=== PATIENT | male | born 1995 | race Caucasian/White ===

== ENCOUNTER 2018-03-01 12:38 | Emergency (ER) | payer SELFPAY ==
[~2018-03-01] VITALS: Ht 177.8 cm; Wt 106.1 kg
[2018-03-01 12:44] VITALS: Ht 177.8 cm; Wt 106.1 kg
[2018-03-01] MEDS ORDERED: KETOROLAC 30 MG INJ IV STA (13:10)
--- NOTE | 2018-03-01 13:25 | ERD ---
ER Documentation Chief Complaint Chief Complaint Complains of lower back and testicular pain HPI 22-year-old male presents with lower back pain which started on Monday. States the pain is the right side of his back. Denies any history of trauma and says it just started when he woke up in the morning. States he has limited range of motion of the back. He is ambulatory. Denies incontinence, saddle numbness, difficulty urinating, focal neurological deficits. In addition he states he has right testicular pain which started Monday. Patient denies any risky sexual behavior, is only sexually active with . He denies any hematuria, dysuria, fevers, or chills. Denies past medical history. Denies allergies. Denies medica tions. Denies surgeries. Denies alcohol, tobacco, drug use. ROS All systems reviewed and are negative except as per history of present illness. Medications Home Meds Active Scripts Hydrocodone/Acetaminophen ([place] 5-325 Tablet) 1 Each Tablet, 1-2 TAB PO Q6H PRN for PAIN, #20 TAB 0 Refills Prov:KT URBINA 03/01/18 Ibuprofen* (Motrin*) 600 Mg Tab, 600 MG PO Q6 for Pain, #30 TAB 0 Refills Prov:KT URBINA 03/01/18 Allergies Allergies: Coded Allergies: No Known Allergy (Unverified , 10/23/11) PMhx/Soc History of Surgery: No Anesthesia Reaction: No Hx Neurological Disorder: No Hx Respiratory Disorders: No Hx Cardiac Disorders: No Hx Psychiatric Problems: No Hx Miscellaneous Medical Probl: No Hx Alcohol Use: No Hx Substance Use: No Hx Tobacco Use: No FmHx Family History: No diabetes, No coronary disease, No other Physical Exam Vitals Vital Signs Date Temp Pulse Resp B/P (MAP) Pulse Ox O2 O2 Flow FiO2 Time Delivery Rate 03/01/18 98.6 67 20 120/57 98 Room Air 17:22 (78) 03/01/18 98.5 105 20 140/64 97 12:44 (89) Physical Exam General: Well developed, will nourished. No acute distress. Heart: RR w/o murmur, rubs, or gallops. Lungs: Clear to auscultation bilaterally w/o wheezes, crackles, rhonchi. Symmetric rise and fall. Equal breath sounds. Abdomen: Soft, nontender, with no rigidity or guarding noted. No masses, le sions, or ecchymoses. Normoactive bowel sounds. No McBurney's point tenderness. Patient ambulatory. No tenderness to palpation in splenic area or splenomegaly. No CVA tenderness. : Right side testicle tender to palpation. No edema or erythema noted. No signs of phimoses or torsion. No signs of inguinal hernia. Back: Limited flexion. Full extension or lateral rotation. No midline tenderness, step offs, or bony deformities. Result Diagram: 03/01/18 1334 03/01/18 1334 Results 24 hrs Laboratory Tests Test 03/01/18 13:34 White Blood Count 10.9 10^3/ul Red Blood Count 5.19 10^6/ul Hemoglobin 16.3 g/dl Hematocrit 47.7 % Mean Corpuscular Volume 91.9 fl Mean Corpuscular Hemoglobin 31.4 pg Mean Corpuscular Hemoglobin Concent 34.2 g/dl Red Cell Distribution Width 11.9 % Platelet Count 302 10^3/UL Mean Platelet Volume 9.4 fl Immature Granulocytes % 0.300 % Neutrophils % 65.0 % Lymphocytes % 23.9 % Monocytes % 6.3 % Eosinophils % 3.9 % Basophils % 0.6 % Nucleated Red Blood Cells % 0.0 /100WBC Immature Granulocytes # 0.030 10^3/ul Neutrophils # 7.1 10^3/ul Lymphocytes # 2.6 10^3/ul Monocytes # 0.7 10^3/ul Eosinophils # 0.4 10^3/ul Basophils # 0.1 10^3/ul Nucleated Red Blood Cells # 0.0 10^3/ul Urine Color YELLOW Urine Clarity CLEAR Urine pH 5.0 Urine Specific [place] 1.012 Urine Ketones NEGATIVE mg/dL Urine Nitrite NEGATIVE mg/dL Urine Bilirubin NEGATIVE mg/dL Urine Urobilinogen NEGATIVE mg/dL Urine Leukocyte Esterase NEGATIVE Thuan/ul Urine Hemoglobin NEGATIVE mg/dL Urine Glucose NEGATIVE mg/dL Urine Total Protein NEGATIVE mg/dl Sodium Level 142 mmol/L Potassium Level 4.2 mmol/L Chloride Level 106 mmol/L Carbon Dioxide Level 25 mmol/L Anion Gap 11 Blood Urea Nitrogen 14 mg/dl Creatinine 0.79 mg/dl Est Glomerular Filtrat Rate mL/min > 60 mL/min Glucose Level 106 mg/dl Calcium Level 9.9 mg/dl Total Bilirubin 0.5 mg/dl Direct Bilirubin 0.00 mg/dl Indirect Bilirubin 0.5 mg/dl Aspartate Amino Transf (AST/SGOT) 80 IU/L Alanine Aminotransferase (ALT/SGPT) 126 IU/L Alkaline Phosphatase 72 IU/L Total Protein 8.8 g/dl Albumin 4.7 g/dl Globulin 4.10 g/dl Albumin/Globulin Ratio 1.14 Current Medications Medications Dose Sig/Ilda Start Time Status Last (Trade) Ordered Route PRN Stop Time Admin Dose Reason Admin Ketorolac 30 mg ONCE STAT 03/01/18 DC 03/01/18 Tromethamine IV 13:10 13:54 (Toradol) 03/01/18 13:19 IV Flush 10 ml STK-MED 03/01/18 DC 03/01/18 (NS 10 ml) ONCE .ROUTE 14:59 14:59 03/01/18 15:00 Sodium 100 ml @ ud STK-MED 03/01/18 DC 03/01/18 Chloride ONCE .ROUTE 14:59 14:59 03/01/18 15:00 Iohexol 150 ml STK-MED 03/01/18 DC 03/01/18 (Omnipaque ONCE .ROUTE 14:59 14:59 300mg/ ml) 03/01/18 15:00 Procedures/MDM DIAGNOSTIC IMAGING REPORT Patient: TOSHIA KANG : 1995 Age: 22 Sex: M MR #: [id number] DOS: 03/01/18 1310 Ordering MD: KT URBINA Location: [facility] Room/Bed: PROCEDURE: CT Abdomen and Pelvis with contrast. CLINICAL INDICATION: Abdomen and pelvis pain. Right flank pain. TECHNIQUE: CT scan of the abdomen and pelvis with contrast was performed. The patient was scanned following the uncomplicated intravenous administration of 90 ml of Omnipaque-300. Coronal and sagittal reformatted images were obtained from the axial source images. Images were reviewed on a high-resolution PACS workstation. Total exam DLP is 1223.05 mGy-cm. CTDIvol is 17.55 mGy. One or more of the following dose reduction techniques were used: Automated exposure control, adjustment of the mA and/or kV according to patient size, use of iterative reconstruction technique. DICOM images are available. COMPARISON: CT scan of the abdomen and pelvis dated 10/23/2011. FINDINGS: The lung bases are normal. There is no pleural effusion. The liver is enlarged and diffusely decreased in attenuation. There is no focal hepatic lesion. The gallbladder and bile ducts are normal. The spleen is normal in size. There is no focal splenic lesion. Both adrenals are normal with no enlargement or mass. The pancreas is unremarkable with no mass or evidence of pancreatitis. Both kidneys demonstrate normal contrast enhancement. There is no renal mass or hydronephrosis. The abdominal aorta is not dilated. There is no retroperitoneal lymphadenopathy or mass. There is no pelvic lymphadenopathy or mass. The bladder and distal ureters are normal. The appendix is well seen and appears normal. The bowel and mesentery are normal. There is no free fluid or free gas. The osseous structures are unremarkable with no fracture or lytic lesion. IMPRESSION: 1. Hepatomegaly. 2. Fatty metamorphosis of the liver. 3. Otherwise unremarkable contrast enhanced CT scan of the abdomen and pelvis. RPTAT: QQ .Dany Singh MD, MD Date Time Electronically viewed and signed by .Dany Singh MD, MD on 03/01/2018 16:22 .R/ CC: KT URBINA [id number] DIAGNOSTIC IMAGING REPORT Patient: TOSHIA KANG : 1995 Age: 22 Sex: M MR #: [id number] DOS: 03/01/18 0000 Ordering MD: KT URBINA Location: [facility] Room/Bed: PROCEDURE: US Scrotum. CLINICAL INDICATION: Right scrotal pain. TECHNIQUE: Multiple sonographic images of the scrotal region were obtained utilizing a linear array transducer with grayscale and color-flow and pulsed Doppler imaging. The images were reviewed on a high-resolution PACS workstation. COMPARISON: No prior studies are available for comparison. FINDINGS: The right testis measures 4.7 x 2.4 x 2.8 cm. The left testis measures 4.8 x 2.3 x 3.4 cm. There is no intratesticular mass. The epididymi are normal. There is normal flow to both testes demonstrated with color Doppler and pulsed Doppler sonography. There is no hydrocele. There is no varicocele. The scrotal wall is unremarkable. IMPRESSION: 1. Unremarkable scrotal ultrasound. RPTAT: QQ .Dany Singh MD, MD Date Time Electronically viewed and signed by .Dany Singh MD, MD on 03/01/2018 14:33 .R/ CC: ADITILORMARIEKT [id number] ER Course: CBC, CMP, UA, UC, scrotal US, CT abodomen and pelvis: All WNL. Toradol administered. MDM: 22-year-old male presents with lower back pain which started on Monday. States the pain is the right side of his back. Denies any history of trauma and says it just started when he woke up in the morning. States he has limited range of motion of the back. He is a ambulatory. Denies incontinence, saddle numbness, difficulty urinating, focal neurological deficits. In addition he states he has right testicular pain which started Monday. Patient denies any risky sexual behavior, is only sexually active with . He denies any hematuria, dysuria, fevers, or chills. I have low suspicion for torsion, obstructed kidney stone, cauda equina, pyelonephritis, strangulated hernia, or other emergent causes based on imaging, labs, physical exam, and history. Pain is possibly due to small kidney stone being passed that did not show up on CT, but etiology is unclear. Patient was given toradol in ER for pain, and discharged with rx for norco and ibufprofin. G/C was sent out for culture. Patient discharged with strict ER precautions. Patient advised to follow up with PMD. All questions answered at discharge. Departure Diagnosis: Primary Impression: Pain in testicle Additional Impression: Flank pain Condition: Stable KT URBINA Mar 01, 2018 13:25
[2018-03-01] MEDS ORDERED: SOD CHLORIDE 0.9% 100 ML ONE (14:59)
[2018-03-01] MEDS ORDERED: IOHEXOL 300MG/ML 150 ML BTL ONE (14:59)
[2018-03-01] MEDS ORDERED: IBUP-1542 PO (16:39)
[2018-03-01] MEDS ORDERED: HYDR-4011 PO (16:39)
--- NOTE | 2018-03-01 17:07 | NUR ---
Procedure Ordered: ABDO PEL W/ Reason for Exam Today: RT FLANK PAIN, TESTICULAR PAIN Previous Exams: Allergies:NKA Current Medications Taken: Glucophage ( ) Metformin ( ) Previous reaction to contrast media: Yes ( ) No ( ) : Yes ( ) No ( ) Asthma: Yes ( ) No ( ) Diabetes: Yes ( ) No ( ) Myeloma: Yes ( ) No ( ) Heart Disease: Yes ( ) No ( ) Cardiac Disease: Yes ( ) No ( ) Kidney Disease: Yes ( ) No ( ) Vascular Disease: Yes ( ) No ( ) NO TO ALL ABOVE Patient Teaching done: Yes (X ) No ( ) Foundry Worker Apprentice Used: Yes ( ) No ( ) Name of Foundry Worker Apprentice: Language Used: As part of the test requested by your doctor, contrast media may be injected into your vein while the x-rays are being taken. Occasionally, reactions from IV contrast may occur. The physician and staff of this hospital are trained to treat these reactions. Select the type of Contrast that will be given to patient: Isovue 300 ( ) Isovue 370 ( ) Visipaque ( ) Cystografin ( ) Gastrographin ( ) Redi-cat ( ) Volumen ( ) OMNIOPAQUE 300 (X) Amount of contrast to be given: 100ML/S IV (X ) PO ( ) Date given: 03/01/18 Lab Values: BUN: 14 Creatinine: 0.79 Reason why contrast cannot be given: Location of patient pre-procedure: [facility] 22 Location of patient post procedure: [facility]
[2018-03-01 17:22] VITALS: BP 120/57; PULSE 67; RESP 20
== END 2018-03-01 17:23 | disposition home or self-care (01) ==
LOC: FTE 12:38
DX: N50.811 Right testicular pain (principal); R10.9 Unspecified abdominal pain
CPT/HCPCS: 36415; 74177; 76870; 80053; 81003; 85025; 87591; 96374; 99285; J1885; Q9967